=== PATIENT | female | born 1970 | race American Indian/Alaskan Native ===

== ENCOUNTER 2017-08-29 11:00 | Outpatient (CLI) | payer BC | END 2017-08-29 11:01 | disposition home or self-care (01) | LOC: SLR 11:00 | PROVIDERS: ATTEND Otolaryngology | DX: G47.30 Sleep apnea, unspecified (principal); R40.0 Somnolence; I10 Essential (primary) hypertension | CPT/HCPCS: 95810 ==

== ENCOUNTER 2017-10-08 08:09 | Outpatient (CLI) | payer BC ==
--- NOTE | 2017-10-09 12:20 | Ultrasound Report ---
BILATERAL DIGITAL DIAGNOSTIC MAMMOGRAM with CAD, BILATERAL DIGITAL DIAGNOSTIC BREAST TOMOSYNTHESIS (DBT) and left breast ultrasound BREAST ULTRASOUND: 10/08/17 13:15:00 CLINICAL: History of a left tender breast lump for one month. However, the patient says that she no longer feels a lump. The technologist did not place a marker. COMPARISON:None available. FINDINGS: The breasts are mostly fatty with a few bilateral retroareolar fibroglandular densities.No mass, architectural distortion or suspicious calcifications . Ultrasound of the left breast (including all four quadrants and the retroareolar area) was performed and demonstrated normal fibroglandular and fatty structures. No mass, cyst or shadowing. IMPRESSION: Negative mammogram and negative left breast ultrasound. BI-RADS CATEGORY: 1 - - Negative RECOMMENDATION: Clinical follow-up and routine mammographic screening in one year. ACR BI-RADS MAMMOGRAPHIC CODES: 0 = Needs additional imaging evaluation; 1 = Negative; 2 = Benign; 3 = Probably benign; 4 = Suspicious; 5 = Malignant; 6 = Known biopsy-proven malignancy COMMENT: 1. Dense breast tissue, i.e., adenosis, fibrocystic changes, etc., may obscure an underlying neoplasm. 2. Approximately 10% of cancers are not detected with mammography. 3. A negative mammography report should not delay biopsy if a clinically suspicious mass is present. COMMENT: Patient follow-up letters are generated by our [employer] application.
== END 2017-10-08 08:10 | disposition home or self-care (01) ==
LOC: MAMMO 08:09
PROVIDERS: ATTEND Family Medicine
DX: N63.10 Unspecified lump in the right breast, unspecified quadrant (principal); N63.20 Unspecified lump in the left breast, unspecified quadrant; R92.8 Other abnormal and inconclusive findings on diagnostic imaging of breast
CPT/HCPCS: 76641; 77066; G0279

== ENCOUNTER → 2017-11-06 | Outpatient (CLI) | payer BC | LOC: SLR 11:00 | PROVIDERS: ATTEND Otolaryngology | DX: G47.33 Obstructive sleep apnea (adult) (pediatric) (principal) | CPT/HCPCS: 95811 ==

== ENCOUNTER 2019-01-07 15:06 | Outpatient (CLI) | payer BC ==
--- NOTE | 2019-01-08 08:10 | Mammography Report ---
BILATERAL DIGITAL SCREENING MAMMOGRAM with CAD and DIGITAL BREAST TOMOSYNTHESIS (DBT) : 01/07/19 15:00:00 CLINICAL: Routine screening. COMPARISON:10/08/17 FINDINGS: The breasts are mostly fatty with a few bilateral residual fibroglandular densities. No mass, architectural distortion or suspicious calcifications. IMPRESSION: No mammographic evidence of malignancy. BI-RADS CATEGORY: 1 - - Negative RECOMMENDATION: Routine mammographic screening in one year. COMMENT: Patient follow-up letters are generated by our [employer] application.
== END 2019-01-07 15:07 | disposition home or self-care (01) ==
LOC: SPVWC 15:06
PROVIDERS: ATTEND Surgery
DX: Z12.31 Encounter for screening mammogram for malignant neoplasm of breast (principal)
CPT/HCPCS: 77063; 77067

== ENCOUNTER 2019-01-14 09:09 | Day surgery (SDC) | payer BC ==
[~2019-01-14 09:09] MED LIST: NACL 0.9% 1000 ML 1,000 ML IV SCH
[2019-01-14 10:16] LABS: Alanine Aminotransferase 16 units/L (7-56); Albumin 4.5 g/dL (3.9-5); BUN/Creatinine Ratio 9; Blood Urea Nitrogen 8 mg/dL (7-17); Calcium 9.2 mg/dL (8.4-10.2); Chol/HDL Ratio 3.43 %; HDL Cholesterol 64 mg/dL (40-59); Hemolysis Index 0; LDL Cholesterol,Direct 151 mg/dL (50-130)
[2019-01-14] MEDS ORDERED: WATER FOR IRRIG STERILE IR ONE (10:54)
--- NOTE | 2019-01-14 11:16 | Anesthesia Consultation ---
Anesthesia Consult and Med Hx - Airway Anesthetic Teeth Evaluation: Good ROM Head & Neck: Adequate Mental/Hyoid Distance: Adequate Mallampati Class: Class II Intubation Access Assessment: Good - Pulmonary Exam CTA: Yes - Pre-Operative Health Status ASA Pre-Surgery Classification: ASA1 Proposed Anesthetic Plan: MAC - Pulmonary Hx Smoking: No Hx Asthma: No Hx Sleep Apnea: Yes - Cardiovascular System Hx Hypertension: Yes Hx Coronary Artery Disease: No - Gastrointestinal Hx Gastroesophageal Reflux Disease: No - Endocrine Hx Non-Insulin Dependent Diabetes: Yes - Other Systems Hx Alcohol Use: No - Additional Comments Anesthesia Medical History Comments: overweight patient with HTN and diabtetes for colonoscopy
--- NOTE | 2019-01-14 11:17 | Anesthesia Day of Surgery ---
Anesthesia Day of Surgery - Day of Surgery Patient Examined: Yes Patient H&P Reviewed: No Patient is NPO: Yes Cardiac Clearance: Yes
[2019-01-14] MEDS ORDERED: DIPRIVAN 10 MG/ML IV ONE ×3 (11:46→11:47)
[2019-01-14 12:04] LABS: Basophils % (Auto) 0.3 % (0.0-1.8); Eosinophils # (Auto) 0.1 K/mm3 (0.0-0.4); Eosinophils % (Auto) 0.7 % (0.0-4.3); Hematocrit 40.2 % (30.3-42.9); Hemoglobin 13.1 gm/dl (10.1-14.3); Lymphocytes % (Auto) 21.4 % (13.4-35.0); Mean Corpuscular HGB Conc 33 % (30-34); Mean Corpuscular Volume 84 fl (79-97); Monocytes # (Auto) 0.4 K/mm3 (0.0-0.8); Monocytes % (Auto) 4.5 % (0.0-7.3); Platelet Count 401 K/mm3 (140-440); Red Blood Count 4.79 M/mm3 (3.65-5.03); Red Cell Distribution Width 14.6 % (13.2-15.2)
--- NOTE | 2019-01-14 12:17 | Short Stay Summary ---
Short Stay Documentation Date of service: 01/14/19 Narrative H&P: The patient presents for screening colonoscopy. No prior studies. - History Past Medical History: diabetes, hypertension Past Surgical History: No surgical history Social history: no significant social history, no smoking, no alcohol abuse, no prescription drug abuse - Allergies and Medications Current Medications: Allergies No Known Allergies Allergy (Verified 12/26/18 15:10) Home Medications Medication Instructions Recorded Confirmed Last Taken Type Clonidine 1 tab PO HS 12/26/18 01/14/19 01/13/19 History Dulaglutide [Trulicity] 1 mg PO QWEEK 12/26/18 12/26/18 Unknown History Ibuprofen 1 tab PO Q8HR PRN 12/26/18 12/26/18 Unknown History Sitagliptin Phosphate [Januvia] 1 tab PO HS 12/26/18 01/14/19 01/12/19 History Active Medications Sodium Chloride (Nacl 0.9% 1000 Ml) 1,000 mls @ 50 mls/hr IV DIRECT MELE Last Admin: 01/14/19 11:00 Dose: 50 mls/hr Documented by: - Physical exam General appearance: no acute distress, well-nourished Integumentary: no rash, no growths, no abnormal pigmentation HEENT: Atraumatic, PERRLA, EOMI, Mucous membr. moist/pink Lungs: Clear to auscultation Breasts: deferred Heart: Regular rate, Normal S1, Normal S2, No murmurs Gastrointestinal: normoactive bowel sounds, no tenderness, no distended, no masses, no guarding, no organomegaly Female Genitourinary: deferred Rectal Exam: deferred Extremities: no ischemia, pulses intact, pulses symmetrical, No edema, normal temperature, normal color, Full ROM Neurological: Normal gait, Normal speech, Strength at 5/5 X4 ext, Normal tone, Sensation intact, Cranial nerves 3-12 NL - Brief post op/procedure progress note Date of procedure: 01/14/19 Findings: see dictated report Estimated blood loss: none Pathology: list (descending colon polyp) Specimen disposition: to lab Condition: stable - Disposition Condition at discharge: Good Disposition: DC-01 TO HOME OR SELFCARE - Discharge Diagnoses (1) Colon cancer screening Status: Acute Short Stay Discharge Plan Activity: other (no driving for 24 hours) Weight Bearing Status: Weight Bear as Tolerated Diet: diabetic Follow up with: EVELYN NJ MD [Primary Care Provider] - 7 Days
--- NOTE | 2019-01-14 12:20 | Operative Report ---
Operative Report Operative Report: Date of procedure: 01/14/2019 Preprocedure diagnosis: Cancer screening, no prior studies. Post procedure diagnosis: 7 mm sessile polyp in the descending colon Procedure: Colonoscopy to the cecum with snare cautery polypectomy Endoscopist: Dr. Mckinney Anesthesia: Monitored anesthesia care per anesthesia department Estimated blood loss: 0 Medications: Monitored anesthesia care. See separate report by anesthesia for details. After careful discussion of the nature and purpose of the procedure as well as details of the technique risks benefits and alternatives the patient gave consent. Please see recent history and physical from the office. The patient was placed in the left lateral decubitus position and medicated per anesthesia. A rectal exam was performed sphincter tone was normal there were no masses palpable. The Evisorsn 570 scope was passed transanally and advanced under continuous dir ect vision without difficulty to the cecum. The colon was well prepared. The cecum was normal. The ascending colon was normal and on forward and retroflexed views. The transverse colon and sigmoid colon were normal. There was a 7 mm sessile polyp in the proximal descending colon with a mucus suggestive of a serrated adenoma. The polyp was removed with snare electrocautery. A small amount of polyp tissue was retrieved. The rectum was normal on forward and retroflexed views. The procedure was well-tolerated overall and the patient was observed in recovery. Conclusions: Small sessile polyp in the proximal descending colon. Rule out serrated adenoma by appearance. Plan: Await pathology. The patient will call the office in 1 week for discussion. Repeat colonoscopy in 5 years or earlier depending upon the pathology. Signed electronically: Endy Mckinney M.D.
[2019-01-14] MEDS ORDERED: APRESOLINE ONE (12:37)
[2019-01-14 15:29] VITALS: BP 143/86
[2019-01-17 15:02] LABS: Vitamin D, 25-OH, D2 9 ng/mL
== END 2019-01-14 09:10 | disposition home or self-care (01) ==
LOC: GIO 09:09
PROVIDERS: ATTEND Internal Medicine Gastroenterology
DX: Z12.11 Encounter for screening for malignant neoplasm of colon (principal); K63.5 Polyp of colon; I10 Essential (primary) hypertension; G47.30 Sleep apnea, unspecified; E11.9 Type 2 diabetes mellitus without complications; K57.30 Diverticulosis of large intestine without perforation or abscess without bleeding; Z98.891 History of uterine scar from previous surgery; Z79.899 Other long term (current) drug therapy
CPT/HCPCS: 36415; 45385; 80053; 80061; 81025; 82306; 82607; 82962; 83036; 83735; 84443; 85025; 88305; J0360; J2704; J7030